=== PATIENT | female | born 1995 | race Two or more races ===

== ENCOUNTER 2023-11-20 14:05 | Emergency (ER) | payer BC, OTHER ==
[~2023-11-20] VITALS: Ht 167.6 cm; Wt 98.3 kg
[2023-11-20 14:50] LABS: Basophils # (auto) 0 10 ^3/uL (0-0.2); Basophils % (auto) 0.3 % (0.0-2.0); Eosinophils # (auto) 0 10 ^3/uL (0-0.8); Eosinophils % (auto) 0.3 % (0.0-7.0); Hematocrit 40.2 % (36.0-46.0); Lymphocytes # (auto) 1.7 10 ^3/uL (0.4-5.4); Lymphocytes % (auto) 14.7 % (10.0-50.0); Mean Corpuscular Hemoglobin 30.8 pg (28.0-32.0); Mean Corpuscular Hgb Conc. 34.8 g/dL (32.0-36.0); Mean Corpuscular Volume 88.4 fL (80.0-100.0); Monocytes # (auto) 0.5 10 ^3/uL (0-1.3); Monocytes % (auto) 4.7 % (0.0-12.0); Neutrophils # (auto) 9.3 10 ^3/uL (1.6-8.6); Nucleated Red Blood Cells % 0.1 %; Platelet Count (auto) 291 10^3/uL (140-450); Red Blood Cells 4.54 10^6/uL (4.0-5.20); Red Cell Distribution Width 13.3 % (11.8-14.3); White Blood Cell 11.7 10^3/uL (4.4-10.8)
[2023-11-20 15:11] LABS: Alanine Aminotransferase 21 U/L (7-40); Albumin 4.4 g/dL (3.2-4.8); Alkaline Phosphatase 74 U/L (46-116); Anion Gap 12 (5-15); Aspartate Aminotransferase < 8 U/L (13-40); BUN/Creatinine Ratio 17.1 (10.0-20.0); Bilirubin, Total 0.3 mg/dL (0.2-1.0); Blood Urea Nitrogen 12 mg/dL (9-23); Calcium 10.1 mg/dL (8.7-10.4); Carbon Dioxide 20 mmol/L (20-30); Chloride 108 mmol/L (98-107); Glucose 110 mg/dL (74-106); Potassium 3.9 mmol/L (3.5-5.1); Sodium 140 mmol/L (136-145)
[2023-11-20 15:47] LABS: Urine Bacteria FEW /hpf (None Seen); Urine Blood 3+ /uL (Negative); Urine Clarity Ex.Turbid (Clear); Urine Color Light-Orange (Yellow); Urine Mucus FEW (None Seen); Urine Protein, UAD 1+ (Negative); Urine Specific Gravity 1.038 (1.001-1.035); Urine Urobilinogen 3 mg/dL (Negative); Urine WBC 48 /hpf (0 - 5); Urine pH 5.5 (5.0-9.0)
[2023-11-20 15:48] LABS: Amphetamine Screen, Urine Neg (NEGATIVE); Benzodiazephine Screen, Urine Neg (NEGATIVE)
[2023-11-20 15:49] LABS: Barbiturate Scree,Urine Neg (NEGATIVE); Cocaine Screen, Urine Neg (NEGATIVE); Opiate Scree,Urine Neg (NEGATIVE); Phencyclidine Screen, Urine Neg (NEGATIVE)
[2023-11-20 15:50] LABS: Cannabinoid Screen, Urine Neg (NEGATIVE)
[2023-11-20 18:14] VITALS: BP 116/75; PULSE 83; RESP 15; TEMP 98.5; O2SAT 97
== END 2023-11-20 18:22 | disposition home or self-care (01) ==
LOC: ER 14:05
DX: O20.0 Threatened abortion (principal); N93.9 Abnormal uterine and vaginal bleeding, unspecified; Z3A.14 14 weeks gestation of pregnancy; Z88.6 Allergy status to analgesic agent
CPT/HCPCS: 36415; 76805; 76817; 80053; 80307; 81001; 84702; 85025; 86850; 86900; 86901

== ENCOUNTER 2024-04-10 08:47 | Observation (INO) | payer BC ==
--- NOTE | 2024-04-10 10:03 | DVH ---
CLINICAL HISTORY: -induced hypertension. COMPARISON: None TECHNIQUE: biophysical profile was performed. Transabdominal sonographic images of the fetus we re obtained. FINDINGS: The fetus is in cephalic position. heart rate measures 138 BPM. Amniotic fluid index measures 17.2 cm. The placenta is posterior in position. BPP profile is an overall score of 8/8, with 2/2 points for breathing, with at least one episode of breathing over a 30 second duration during a 30 minute observation, 2/2 points for m ovements, with 3 or more discrete body or limb movements, 2/2 points for tone, with one or more episodes of extremity extension with return to flexion, or opening and closing of hand, and 2/ 2 points for amniotic fluid, with at least 1 pocket of amniotic fluid that measures 2 cm in 2 perpend icular planes. IMPRESSION: BPP score of 8/8.
[2024-04-10 10:11] LABS: Urine Bacteria FEW /hpf (None Seen); Urine Blood Negative /uL (Negative); Urine Clarity Clear (Clear); Urine Color Light-Yellow (Yellow); Urine Protein, UAD Negative (Negative); Urine Specific Gravity 1.009 (1.001-1.035); Urine Squamous Epithelial Cell FEW /hpf (<5); Urine Urobilinogen Normal (Negative); Urine WBC 22 /HPF (0-5); Urine pH 6.5 (5.0-9.0)
[2024-04-10 10:34] LABS: Basophils # (auto) 0 10 ^3/uL (0-0.2); Basophils % (auto) 0.2 % (0.0-2.0); Eosinophils # (auto) 0.1 10 ^3/uL (0-0.8); Eosinophils % (auto) 0.7 % (0.0-7.0); Hemoglobin 12.5 g/dL (12.2-16.2); Lymphocytes # (auto) 1.6 10 ^3/uL (0.4-5.4); Lymphocytes % (auto) 19.5 % (10.0-50.0); Mean Corpuscular Hemoglobin 29.9 pg (28.0-32.0); Mean Corpuscular Hgb Conc. 33.8 g/dL (32.0-36.0); Mean Corpuscular Volume 88.5 fL (80.0-100.0); Monocytes # (auto) 0.5 10 ^3/uL (0-1.3); Monocytes % (auto) 6.4 % (0.0-12.0); Neutrophils # (auto) 6.2 10 ^3/uL (1.6-8.6); Neutrophils % (auto) 73.2 % (37.0-80.0); Nucleated Red Blood Cells % 0.5 %; Platelet Count (auto) 195 10^3/uL (140-450); Red Blood Cells 4.18 10^6/uL (4.0-5.20); Red Cell Distribution Width 13.7 % (11.8-14.3); White Blood Cell 8.4 10^3/uL (4.4-10.8)
[2024-04-10 10:50] LABS: INR 0.89 (0.9-1.15); Partial Thromboplastin Time 28.4 SEC (24.5-34.5); Prothrombin Time 9.5 sec (9.3-11.8)
[2024-04-10 10:55] LABS: Protein, Urine 8.2 mg/dL (1-14)
[2024-04-10 10:57] LABS: Alkaline Phosphatase 104 U/L (46-116)
[2024-04-10 10:57] LABS: Creatinine, Urine 59.9 mg/dL (30.0-125.0); Urine Protein/Creatinine Ratio 0.14
[2024-04-10 10:58] LABS: Alanine Aminotransferase 14 U/L (7-40); Albumin 3.7 g/dL (3.2-4.8); Anion Gap 6 (5-15); BUN/Creatinine Ratio 15.5 (10.0-20.0); Bilirubin, Total 0.3 mg/dL (0.2-1.0); Calcium 9.4 mg/dL (8.7-10.4); Carbon Dioxide 24 mmol/L (20-31); Chloride 107 mmol/L (98-107); Glucose 79 mg/dL (74-106); Potassium 3.8 mmol/L (3.5-5.1); Sodium 137 mmol/L (136-145); Total Protein 6.3 g/dL (5.7-8.2); Uric Acid 5.9 mg/dL (3.1-7.8)
[2024-04-10] MEDS ORDERED: PREN-96 PO (11:01)
[2024-04-10 11:02] LABS: Aspartate Aminotransferase 9 U/L (13-40); Blood Urea Nitrogen 9 mg/dL (9-23)
--- NOTE | 2024-04-10 21:16 | DVHDS2 ---
Discharge Summary Date of Admission Apr 10, 2024 at 08:47 Date of Discharge: Apr 10, 2024 Admitting Diagnosis Gestational HTN Labs/Diagnostic Data: Laboratory Results Test 04/10/24 10:02 04/10/24 09:30 White Blood Count 8.4 10^3/uL (4.4-10.8) Red Blood Count 4.18 10^6/uL (4.0-5.20) Hemoglobin 12.5 g/dL (12.2-16.2) Hematocrit 37.0 % (36.0-46.0) Mean Corpuscular Volume 88.5 fL (80.0-100.0) Mean Corpuscular Hemoglobin 29.9 pg (28.0-32.0) Mean Corpuscular Hemoglobin Concent 33.8 g/dL (32.0-36.0) Red Cell Distribution Width 13.7 % (11.8-14.3) Platelet Count 195 10^3/uL (140-450) Mean Platelet Volume 9.7 fL (6.9-10.8) Neutrophils (%) (Auto) 73.2 % (37.0-80.0) Lymphocytes (%) (Auto) 19.5 % (10.0-50.0) Monocytes (%) (Auto) 6.4 % (0.0-12.0) Eosinophils (%) (Auto) 0.7 % (0.0-7.0) Basophils (%) (Auto) 0.2 % (0.0-2.0) Neutrophils # (Auto) 6.2 10 ^3/uL (1.6-8.6) Lymphocytes # (Auto) 1.6 10 ^3/uL (0.4-5.4) Monocytes # (Auto) 0.5 10 ^3/uL (0-1.3) Eosinophils # (Auto) 0.1 10 ^3/uL (0-0.8) Basophils # (Auto) 0 10 ^3/uL (0-0.2) Nucleated Red Blood Cells 0.5 % Prothrombin Time 9.5 sec (9.3-11.8) Prothrombin Time INR 0.89 (0.9-1.15) Activated Partial Thromboplast Time 28.4 SEC (24.5-34.5) Sodium Level 137 mmol/L (136-145) Potassium Level 3.8 mmol/L (3.5-5.1) Chloride Level 107 mmol/L (98-107) Carbon Dioxide Level 24 mmol/L (20-31) Anion Gap 6 (5-15) Blood Urea Nitrogen 9 mg/dL (9-23) Creatinine 0.58 mg/dL (0.550-1.02) Glomerular Filtration Rate Calc 125 mL/min (>90) BUN/Creatinine Ratio 15.5 (10.0-20.0) Serum Glucose 79 mg/dL (74-106) Uric Acid 5.9 mg/dL (3.1-7.8) Calcium Level 9.4 mg/dL (8.7-10.4) Total Bilirubin 0.3 mg/dL (0.2-1.0) Aspartate Amino Transferase (AST) 9 U/L (13-40) Alanine Aminotransferase (ALT) 14 U/L (7-40) Alkaline Phosphatase 104 U/L (46-116) Total Protein 6.3 g/dL (5.7-8.2) Albumin 3.7 g/dL (3.2-4.8) Urine Color Light-yellow (Yellow) Urine Clarity Clear (Clear) Urine pH 6.5 (5.0-9.0) Urine Specific [place] 1.009 (1.001-1.035) Urine Protein Negative (Negative) Urine Ketones Negative (Negative) Urine Blood Negative /uL (Negative) Urine Nitrite Negative (Negative) Urine Bilirubin Negative (Negative) Urine Urobilinogen Normal mg/dL (Negative) Urine Leukocyte Esterase 3+ /uL (Negative) Urine RBC 2 /hpf (0 - 4) Urine Microscopic WBC 22 /HPF (0-5) Urine Squamous Epithelial Cells Few /hpf (<5) Urine Bacteria Few /hpf (None Seen) Urine Creatinine 59.90 mg/dL (30.0-125.0) Urine Protein/Creatinine Ratio 0.14 Urine Glucose Normal mg/dL (Normal) Urine Total Protein 8.2 mg/dL (1-14) Other Laboratory Tests 04/10/24 10:02 Brief Hx & Hospital Course: L&D triage for gestational HTN Operations or Procedures NST/BPP/COLBY PIH labs All normal Condition at Discharge: Stable Final Diagnosis/Problems List IUP 34 weeks Gestational HTN Discharge Disposition: Home Discharge Instruct/Medications Diet: Consistent carbohydrate Activity: No Restrictions, As Tolerated Follow Up/Referral: Dr. Gabriel in clinic in 1 week Medications: N/A Discharge Statement: "Patient was advised to return to the ER or call 911 if any headaches, dizziness, shortness of breath, chest pain, abdominal pain, bleeding, fevers, or worsening of medical condition. Patient was counseled about treatment plan, medications, possible side effects, patientverbalized understanding. All questions were answered to the best of my ability. This discharge took greater then 30 minutes in planning, reviewing documentation, counseling the patient, and discussing with other team members." ASSESSMENT ASSESSMENT Assessment Visit Coding OBGYN Date of Service: Apr 10, 2024 Billing Provider: INGA GABRIEL DO CABINETMAKER HELPER Common Visit Codes: [id number] OBS CARE (LOW) CABINETMAKER HELPER Procedure Codes: [id number] NON-STRESS TEST INGA GABRIEL DO Apr 10, 2024 21:15
== END 2024-04-10 11:15 | disposition home or self-care (01) ==
LOC: UNDOADMOB 08:47 → LDRP 08:47 → UNDODISOB 11:15
PROVIDERS: ADMIT Obstetrics & Gynecology; ATTEND Obstetrics & Gynecology
DX: O13.3 Gestational [pregnancy-induced] hypertension without significant proteinuria, third trimester (principal); Z98.890 Other specified postprocedural states; Z79.899 Other long term (current) drug therapy; Z3A.34 34 weeks gestation of pregnancy
CPT/HCPCS: 36415; 59025; 76818; 80053; 81001; 81002; 82570; 84156; 84550; 85025; 85610; 85730; 87086; 94760; G0378

== ENCOUNTER 2024-05-08 09:48 | Inpatient (IN) | payer BC ==
[2024-05-08] VITALS (10 sets, daily range): BP systolic 116–134; BP diastolic 63–83; PULSE 74–89; RESP 12–18; TEMP 97.9–98.4; O2SAT 93–100
[~2024-05-08] VITALS: Ht 167.6 cm; Wt 107.0 kg
[~2024-05-08 09:48] MED LIST: PREN-96 PO
--- NOTE | 2024-05-08 11:04 | DVH ---
CLINICAL HISTORY: -induced hypertension. COMPARISON: US BIOPHYSICAL PROFILE on DOS: 04/10/24 TECHNIQUE: biophysical profile was performed. Transabdominal sonographic images of the fetus we re obtained. FINDINGS: The fetus is in cephalic position. heart rate measures 148 BPM. Amniotic fluid index measures 15.5 cm. The placenta is posterior in position, without evidence of previa or abruption. BPP profile is an overall score of 8/8, with 2/2 points for breathing, with at least one episode of breathing over a 30 second duration during a 30 minute observation, 2/2 points for m ovements, with 3 or more discrete body or limb movements, 2/2 points for tone, with one or more episodes of extremity extension with return to flexion, or opening and closing of hand, and 2/ 2 points for amniotic fluid, with at least 1 pocket of amniotic fluid that measures 2 cm in 2 perpend icular planes. IMPRESSION: BPP score of 8/8.
[2024-05-08] MEDS ORDERED: hydrALAZINE HCL 20 MG/ML VL IV PRN (11:15)
[2024-05-08] MEDS: LABETALOL HCL 20 MG/4 ML VL IV ONE ×3 (11:16→21:09)
[2024-05-08] MEDS ORDERED: DERMOPLAST 60ML BOTTLE TOP PRN (11:30)
[2024-05-08] MEDS ORDERED: WITCH HAZEL-GLYCERIN PAD TOP PRN (11:30)
[2024-05-08] MEDS ORDERED: LACT. RINGERS/OXYTOCIN 20UNITS 1,000 ML IV SCH (11:30)
[2024-05-08] MEDS ORDERED: miSOPROStol 50 MCG per PRE-CUT 1/2 TAB PO PRN (11:30)
[2024-05-08] MEDS ORDERED: LIDOCAINE 2%HCL (LOCAL ANESTH.) INJ 20ML MDV IJ PRN (11:30)
[2024-05-08] MEDS ORDERED: LACT. RINGERS/OXYTOCIN 20UNITS 500 ML IV ONE ×2 (11:30→12:00)
[2024-05-08] MEDS ORDERED: BUTORPHANOL TARTRATE 2 MG/1 ML VIAL IV PRN ×2 (11:30)
[2024-05-08] MEDS ORDERED: TERBUTALINE SULFATE 1 MG/ML 1ML VIAL SC PRN (11:30)
[2024-05-08] MEDS ORDERED: PHISODERM TOP SOLN 240ML BTL TOP PRN (11:30)
[2024-05-08 12:21] LABS: Protein, Urine 23.4 mg/dL (1-14)
[2024-05-08 12:21] LABS: Basophils # (auto) 0 10 ^3/uL (0-0.2); Basophils % (auto) 0.3 % (0.0-2.0); Eosinophils # (auto) 0 10 ^3/uL (0-0.8); Eosinophils % (auto) 0.3 % (0.0-7.0); Hemoglobin 13.3 g/dL (12.2-16.2); Lymphocytes # (auto) 1.4 10 ^3/uL (0.4-5.4); Lymphocytes % (auto) 14.6 % (10.0-50.0); Mean Corpuscular Hemoglobin 30.6 pg (28.0-32.0); Mean Corpuscular Hgb Conc. 34.2 g/dL (32.0-36.0); Mean Corpuscular Volume 89.6 fL (80.0-100.0); Monocytes # (auto) 0.5 10 ^3/uL (0-1.3); Monocytes % (auto) 4.7 % (0.0-12.0); Neutrophils # (auto) 7.9 10 ^3/uL (1.6-8.6); Neutrophils % (auto) 80.1 % (37.0-80.0); Nucleated Red Blood Cells % 0.1 %; Platelet Count (auto) 181 10^3/uL (140-450); Red Blood Cells 4.35 10^6/uL (4.0-5.20); Red Cell Distribution Width 14.2 % (11.8-14.3); White Blood Cell 9.9 10^3/uL (4.4-10.8)
[2024-05-08 12:23] LABS: Creatinine, Urine 130.79 mg/dL (30.0-125.0); Urine Protein/Creatinine Ratio 0.18
[2024-05-08] MEDS: LACTATED RINGER'S 1,000 ML IV SCH (12:24)
[2024-05-08 12:25] LABS: Amphetamine Screen, Urine Neg (NEGATIVE); Barbiturate Scree,Urine Neg (NEGATIVE); Benzodiazephine Screen, Urine Neg (NEGATIVE); Cannabinoid Screen, Urine Neg (NEGATIVE); Cocaine Screen, Urine Neg (NEGATIVE); Opiate Scree,Urine Neg (NEGATIVE); Phencyclidine Screen, Urine Neg (NEGATIVE)
[2024-05-08] MEDS: MAGNESIUM SULFATE 100 ML IV ONE (12:25)
[2024-05-08 12:39] LABS: Urine Bacteria FEW /hpf (None Seen); Urine Blood Negative /uL (Negative); Urine Clarity Clear (Clear); Urine Color Yellow (Yellow); Urine Hyaline Cast FEW /lpf (0 - 2); Urine Mucus FEW (None Seen); Urine Protein, UAD TRACE (Negative); Urine Specific Gravity 1.025 (1.001-1.035); Urine Squamous Epithelial Cell FEW /hpf (<5); Urine Urobilinogen Normal (Negative); Urine WBC 6 /HPF (0-5)
[2024-05-08 12:46] LABS: Alanine Aminotransferase 17 U/L (7-40); Anion Gap 9 (5-15); Aspartate Aminotransferase 14 U/L (13-40); BUN/Creatinine Ratio 14.3 (10.0-20.0); Bilirubin, Total 0.4 mg/dL (0.2-1.0); Blood Urea Nitrogen 10 mg/dL (9-23); Calcium 9.4 mg/dL (8.7-10.4); Carbon Dioxide 23 mmol/L (20-31); Chloride 105 mmol/L (98-107); Glucose 77 mg/dL (74-106); INR 0.86 (0.9-1.15); Magnesium 1.8 mg/dL (1.6-2.6); Partial Thromboplastin Time 28.2 SEC (24.5-34.5); Potassium 4.1 mmol/L (3.5-5.1); Prothrombin Time 9.3 sec (9.3-11.8); Sodium 137 mmol/L (136-145); Total Protein 6.8 g/dL (5.7-8.2)
[2024-05-08 12:48] LABS: Alkaline Phosphatase 138 U/L (46-116)
[2024-05-08] MEDS: MAGNESIUM SULFATE 40MG/ML 1,000 ML IV SCH (12:50)
[2024-05-08] MEDS ORDERED: NALOXONE HCL 0.4 MG/ML VIAL IV ONE (13:15)
[2024-05-08] MEDS ORDERED: ROPIVACAINE HCL 200 ML ONE (13:29)
--- NOTE | 2024-05-08 13:33 | DVHPN2 ---
Visit Coding OBGYN Date of Service: May 08, 2024 Billing Provider: INGA GABRIEL DO CLINICAL INFORMATICS SPECIALIST Common Visit Codes: [id number] OBS CARE (HIGH) INGA GABRIEL DO May 08, 2024 13:33
--- NOTE | 2024-05-08 13:36 | DVHPN2 ---
OB Labor Progress Note Date and Time Seen Date Seen: May 08, 2024 Time Seen: 13:25 Subjective Patient reports: No new complaints Objective Vital Signs VS stable Monitoring Method Monitoring Method: Internal Heart Rate Heart Rate Baseline: 130 Heart Rate Variability: Minimal Presence of FHR Accelerations: No Presence of FHR Decelerations: No Contractions Contractions Frequency: None Membranes Membranes: Ruptured (AROM, light meconium fluid. IUPC/FSE placed) Amniotic Fluid Color: THERMOSTAT MAKER Meconium Vaginal Exam Vag Exam Deferred: No Vaginal Exam Dilation: 4 Vaginal Exam Effacement: 80 Vaginal Exam Station: -2 Vaginal Exam Presentation: VTX Vaginal Exam Show: None Medications Medications - Pitocin: No Medication - Epidural: No Lab Results Lab Results Vital Signs Date Time Temp Pulse Resp B/P (MAP) Pulse Ox O2 Delivery O2 Flow Rate FiO2 05/08/24 15:30 18 100 Room Air 05/08/24 11:16 83 130/75 Current Medications Medications (Trade) Dose Ordered Sig/Sandrine Start Time Stop Time Status Last Admin Dose Admin Hydralazine HCl (Apresoline Injection) 10 mg Q20MP PRN 05/08/24 11:15 Labetalol HCl (Labetalol HCl) 20 mg ONCE ONCE 05/08/24 11:15 05/08/24 11:43 DC Lactated Ringer's 1,000 ml @ 125 mls/hr Q8H 05/08/24 11:30 05/08/24 12:24 125 MLS/HR Witch Marilu (Tucks) 1 pad PRN PRN 05/08/24 11:30 Sodium Lauryl Sulfate (Phisoderm) 240 ml PRN PRN 05/08/24 11:30 Benzocaine (Dermoplast) 1 applic PRN PRN 05/08/24 11:30 Butorphanol Tartrate (Stadol Injection) 1 mg Q4HPRN PRN 05/08/24 11:30 Butorphanol Tartrate (Stadol Injection) 2 mg Q4HPRN PRN 05/08/24 11:30 Lidocaine HCl (Xylocaine) 20 ml ONCE PRN 05/08/24 11:30 Oxytocin 1,000 ml @ 6 ml/hr Q24H 05/08/24 11:30 Terbutaline Sulfate (Brethine Inj) 0.25 mg ONCE PRN 05/08/24 11:30 Oxytocin 500 ml @ 999 mls/hr Q31M ONCE 05/08/24 11:30 05/08/24 12:00 DC Oxytocin 500 ml @ 125 mls/hr Q4H ONCE 05/08/24 12:00 05/08/24 15:59 DC Misoprostol (Cytotec) 50 mcg Q4HPRN PRN 05/08/24 11:30 Magnesium Sulfate 1,000 ml @ 50 mls/hr Q20H 05/08/24 11:30 05/08/24 12:50 50 MLS/HR Magnesium Sulfate 100 ml @ 300 mls/hr ONCE ONCE 05/08/24 11:30 05/08/24 11:49 DC 05/08/24 12:25 300 MLS/HR Lorazepam (Ativan Inj) 4 mg ONCE ONCE 05/08/24 11:30 05/08/24 11:43 DC Labetalol HCl (Labetalol HCl) 40 mg ONCE ONCE 05/08/24 12:30 05/08/24 13:06 DC Naloxone HCl (Narcan) 0.2 mg PRN ONCE 05/08/24 13:15 05/08/24 13:28 DC Ephedrine Sulfate (ePHEDrine SULFATE) 10 mg PRN ONCE 05/08/24 13:15 05/08/24 13:28 DC 05/08/24 13:52 10 MG Laboratory Tests Test 05/08/24 11:39 05/08/24 10:40 Range/Units White Blood Count 9.9 4.4-10.8 10^3/uL Red Blood Count 4.35 4.0-5.20 10^6/uL Hemoglobin 13.3 12.2-16.2 g/dL Hematocrit 39.0 36.0-46.0 % Mean Corpuscular Volume 89.6 80.0-100.0 fL Mean Corpuscular Hemoglobin 30.6 28.0-32.0 pg Mean Corpuscular Hemoglobin Concent 34.2 32.0-36.0 g/dL Red Cell Distribution Width 14.2 11.8-14.3 % Platelet Count 181 140-450 10^3/uL Mean Platelet Volume 10.6 6.9-10.8 fL Neutrophils (%) (Auto) 80.1 H 37.0-80.0 % Lymphocytes (%) (Auto) 14.6 10.0-50.0 % Monocytes (%) (Auto) 4.7 0.0-12.0 % Eosinophils (%) (Auto) 0.3 0.0-7.0 % Basophils (%) (Auto) 0.3 0.0-2.0 % Neutrophils # (Auto) 7.9 1.6-8.6 10 ^3/uL Lymphocytes # (Auto) 1.4 0.4-5.4 10 ^3/uL Monocytes # (Auto) 0.5 0-1.3 10 ^3/uL Eosinophils # (Auto) 0 0-0.8 10 ^3/uL Basophils # (Auto) 0 0-0.2 10 ^3/uL Nucleated Red Blood Cells 0.1 % Prothrombin Time 9.3 9.3-11.8 sec Prothrombin Time INR 0.86 L 0.9-1.15 Activated Partial Thromboplast Time 28.2 24.5-34.5 SEC Sodium Level 137 136-145 mmol/L Potassium Level 4.1 3.5-5.1 mmol/L Chloride Level 105 98-107 mmol/L Carbon Dioxide Level 23 20-31 mmol/L Anion Gap 9 5-15 Blood Urea Nitrogen 10 9-23 mg/dL Creatinine 0.70 0.550-1.02 mg/dL Glomerular Filtration Rate Calc 119 >90 mL/min BUN/Creatinine Ratio 14.3 10.0-20.0 Serum Glucose 77 74-106 mg/dL Uric Acid 6.0 3.1-7.8 mg/dL Calcium Level 9.4 8.7-10.4 mg/dL Magnesium Level 1.8 1.6-2.6 mg/dL Total Bilirubin 0.4 0.2-1.0 mg/dL Aspartate Amino Transferase (AST) 14 13-40 U/L Alanine Aminotransferase (ALT) 17 7-40 U/L Alkaline Phosphatase 138 H 46-116 U/L Total Protein 6.8 5.7-8.2 g/dL Albumin 4.0 3.2-4.8 g/dL Rapid Plasma Reagin Pending Treponema pallidum Ab (TP-PA) Pending Hepatitis C Antibody Negative Negative Urine Color Yellow Yellow Urine Clarity Clear Clear Urine pH 6.0 5.0-9.0 Urine Specific [place] 1.025 1.001-1.035 Urine Protein Trace H Negative Urine Ketones Negative Negative Urine Blood Negative Negative /uL Urine Nitrite Negative Negative Urine Bilirubin Negative Negative Urine Urobilinogen Normal Negative mg/dL Urine Leukocyte Esterase 2+ Negative /uL Urine RBC 2 0 - 4 /hpf Urine Microscopic WBC 6 H 0-5 /HPF Urine Squamous Epithelial Cells Few <5 /hpf Urine Bacteria Few H None Seen /hpf Urine Hyaline Casts Few 0 - 2 /lpf Urine Mucus Few None Seen Urine Creatinine 130.79 H 30.0-125.0 mg/dL Urine Protein/Creatinine Ratio 0.18 Urine Glucose Normal Normal mg/dL Urine Total Protein 23.4 H 1-14 mg/dL Urine Opiates Screen Neg NEGATIVE Urine Fentanyl Screen Neg NEGATIVE Urine Barbiturates Screen Neg NEGATIVE Urine Phencyclidine Screen Neg NEGATIVE Urine Amphetamines Screen Neg NEGATIVE Urine Benzodiazepines Screen Neg NEGATIVE Urine Cocaine Screen Neg NEGATIVE Urine Cannabinoids Screen Neg NEGATIVE Assessment Assessment Severe Gestational HTN vs Pre-eclampsia, IUP 38.4 wk GBS neg Category II FHR (minimal variability, no decels) Plan Plan Induction of labor by Amniotomy Pitocin if necessary Continuous EFM Indications for C/S discussed w/ patient. Plan discussed with: Patient, Other (RN) Visit Coding OBGYN Date of Service: May 08, 2024 Billing Provider: INGA GABRIEL DO SOCIAL WORKER CLINICAL Common Visit Codes: [id number] INP/OBS CARE(HIGH) INGA GABRIEL DO May 08, 2024 13:36
--- NOTE | 2024-05-08 13:39 | DVHHP ---
ADMIT DATE: 05/08/2024 CHIEF COMPLAINT: Elevated blood pressure. HISTORY OF PRESENT ILLNESS: * This is a 28-year-old female 1, para 0 with an early term intrauterine , EGA at 38 weeks and 4 days. * The patient has endorsed almost daily headaches that are mild to moderate, yet persistent. She denies any visual changes, epigastric pain or any nondependent edema. Previously about 2 weeks ago, she was elevated for elevated blood pressures that proved to be transient. Today, her blood pressure is elevated in the office, 130/90, and 170/100 on L&D. PAST MEDICAL HISTORY: Negative. PAST SURGICAL HISTORY: Negative. MEDICATIONS: vitamins. ALLERGIES: No known drug allergies. FAMILY HISTORY: NON CONTRIBUTORY SOCIAL HISTORY: Denies any tobacco, illicit drug use or alcohol use. The patient is . REVIEW OF SYSTEMS: A 14-point review of systems is negative, otherwise stated in the history of present illness. PHYSICAL EXAMINATION: VITAL SIGNS: Please refer to EHR. GENERAL: She is alert, in no acute distress, appears nontoxic. HEENT: Normocephalic, atraumatic. EOMI. NECK: Supple, with no palpable thyromegaly. CHEST: Normal heart and lung sounds without any gallops or murmurs. ABDOMEN: Gravid, soft, nontender. Fundal height 38 cm. EXTREMITIES: With trace peripheral pretibial edema. DTRs are 1/4. No hyperreflexia or clonus noted. PELVIC: Shows normal external female genitalia with no lesions. Cervix is 3-4 cm dilated, 80% effaced and -2 station with a vertex presentation. heart rate is baseline of 130 with minimal variability, no decelerations, no accelerations (category 2). TOCO: There are no contractions present. She is GBS negative. ASSESSMENT: * Early term intrauterine 38 weeks and 4 days. * Severe hypertension, gestational hypertension versus severe preeclampsia * Category II FHR pattern PLAN: The patient will be admitted for medically indicated induction of labor. The risks, benefits and alternatives have been discussed with the patient and informed consent has been obtained. Risks and necessity of proceeding to for maternal indications have been discussed with the patient. Patient desires attempt to vaginal delivery, declined offer of primary c/section delivery without a trial of labor. DO GERARD David/VIS TID: [id number] RECEIPT: [id number] MTDD
[2024-05-08] MEDS: ePHEDrine SULFATE 50 MG/ML AMP IV ONE (13:52)
[2024-05-08] MEDS ORDERED: oxyTOCIN 10 UNIT/ML 10ML VIAL ONE (16:50)
[2024-05-08] MEDS ORDERED: DexAMETHasone SOD PHOS 10MG/1ML VIAL INJ ONE (16:50)
[2024-05-08] MEDS ORDERED: KETOROLAC TROMETH 30 MG/ML 1ML VIAL ONE (16:50)
[2024-05-08] MEDS ORDERED: ONDANSETRON HCL 4 MG/2 ML VIAL ONE (16:50)
[2024-05-08] MEDS ORDERED: MORPHINE SULF PF 5 MG/10 ML VIAL ONE (16:50)
[2024-05-08] MEDS ORDERED: fentaNYL CITRATE 100 MCG/2 ML VL ONE (16:50)
[2024-05-08] MEDS ORDERED: EPINEPHrine HCL 1 MG/1 ML AMP ONE (16:53)
[2024-05-08] MEDS ORDERED: LIDOCAINE 1% (LOCAL ANESTH.) PF 5ml SDV ONE (16:53)
[2024-05-08] MEDS ORDERED: SODIUM BICARB 8.4% 50Meq/50ml SYR Vial IV ONE (16:53)
[2024-05-08] MEDS ORDERED: LIDOCAINE 2% (LOCAL ANESTH.) PF 5ml SDV ONE (16:54)
[2024-05-08] MEDS ORDERED: ePHEDrine SULFATE 50 MG/ML AMP ONE (17:48)
[2024-05-08] MEDS ORDERED: NALBUPHINE HCL 10 MG/1ml INJECTION IV ONE (18:30)
[2024-05-08] MEDS ORDERED: diphenhdrAMINE HCL 50 MG/1 ML VL IV PRN (18:30)
[2024-05-08] MEDS ORDERED: NALOXONE HCL 0.4 MG/ML VIAL IV PRN (18:30)
[2024-05-08] MEDS ORDERED: HYDROmorphone HCL 2 MG/ML VL/or syr IV PRN (18:30)
--- NOTE | 2024-05-08 18:35 | DVHOP2 ---
Operative Report - 2 Report Details Date: 05/08/24 Preop Diagnosis: 1. IUP 38.4 wk, Severe Gestational Hypertension 2. Failed induction of labor, NRFHR pattern 3. Category II EFM Postop Diagnosis: Same Surgeon: Rene Gabriel DO Supervisor Meter [employer]: Ruddy Larkin NP-C Anesthesiologist: Amari Hawthorne CRNA Anesthesia: Regional (Epidural) Consent: The patient was informed of the risks and benefits of the procedure. These include but are not limited to complications of anesthesia, postoperative infection, incomplete relief of symptoms, recurrence of symptoms, damage to blood vessels, nerves and tendons, deep venous thrombosis, pulmonary embolism and possible need for repeat surgery in the future. Complications: None Estimated Blood Loss: 700 mL Findings: Findings: Viable male infant in cephalic presentation. Apgars 8 and 9. Light meconium tinged amniotic fluid. Intact placenta, three vessel cord. Normal uterus, fallopian tubes and ovaries bilaterally. 2 layer uterine closure Indications for Surgery: intolerance to labor, NRFHR categ II EFM tracing, remote from delivery Name of Procedure Performed Primary Low Transverse Section Delivery Procedure Details Procedure Details: DATE OF SURGERY: 05/08/2024 PROCEDURE PERFORMED: Non-elective primary low transverse section via Pfannenstiel skin incision. SURGEON: Rene Gabriel DO BRICK BURNER: Ruddy Larkin NP DESCRIPTION OF FINDINGS: Delivery of a liveborn male, cephalic presentation, scores of 8 and 9, 1+ meconium stained amniotic fluid. Normal placenta, 3-vessel umbilical cord, two-layer uterine closure. Normal bilateral fallopian tubes, ovaries and placenta as described above. TECHNICAL PROCEDURE: After informed consent was obtained, the patient was taken to the operating room where her epidural anesthesia was found to be adequate. She was placed in the supine position with a slight leftward tilt. She was sterilely prepped and draped in the usual fashion. A Pfannenstiel skin incision was made with the scalpel. The incision was developed sharply to the underlying layer of fascia and peritoneum. Entry into the peritoneal cavity was performed bluntly. The peritoneal incision was extended superiorly and inferiorly with good visualization of the bladder. The Memo O retractor was placed into the incision. Using a second scalpel, the lower uterine segment was incised in a low transverse fashion and incision extended laterally by blunt dissection. The amniotic fluid membranes were ruptured. The fluid was 1+ meconium stained. The baby was found to be the cephalic presentation. The baby was delivered atraumatically. After delivery of the infant, the nose and mouth were suctioned. The cord was clamped and cut and the baby handed off to waiting pediatric team. Cord blood and cord gas were obtained. The placenta was spontaneously delivered. The uterus was exteriorized and cleared of all clots and debris using moist laparotomy sponges. The uterine incision was repaired with #1 PDS in continuous running locking fashion. A second layer of #1 PDS was used to imbricate the uterine incision with good tissue approximation and hemostasis obtained. The cul-de-sac and pericolic gutters were cleared of all clots and debris. The uterus was returned to the abdomen. Hemostasis was confirmed. The abdomen was irrigated with sterile water. At this point, all instrumentation was removed from the patient's abdomen. The peritoneal layer was not closed. The rectus fascia was closed using #1 Stratafix PDS. It was closed in continuous running fashion with good tissue approximation. The subcutaneous tissue was approximated in interrupted fashion using 3-0 plain gut and the skin closed in subcuticular fashion using 3-0 Monocryl with a Stratafix suture. The Sylke sterile dressing was then placed over the incision. The patient tolerated the procedure well. Sponge, lap and needle counts were correct x4. INTRAOPERATIVE COMPLICATIONS: None. ESTIMATED BLOOD LOSS: 700 mL POSTOPERATIVE CONDITION: guarded due to hypertension SPECIMENS: Cord blood, cord gas and placenta. MEDICATIONS: The patient received 2 grams of Ancef prior to skin incision and IV magnesium sulfate prior to delivery and IV labetalol for severe hypertension. PROGNOSIS: Guarded due to severe gestational hypertension Rene Gabriel DO CG/SAG Condition Guarded Disposition Still a Patient Visit Coding OBGYN Date of Service: May 08, 2024 Billing Provider: RENE GABRIEL DO BUFF WHEEL FABRICATOR Common Visit Codes: PROCEDURE ONLY BUFF WHEEL FABRICATOR Procedure Codes: [id number] OB CARE, RENE BRADSHAW DO May 08, 2024 18:35
[2024-05-08] MEDS: ONDANSETRON HCL 4 MG/2 ML VIAL IV PRN (20:43)
[2024-05-08] MEDS: LORazepam 2MG/ML-1ML VIAL IV ONE (21:08)
[2024-05-08] MEDS: ceFAZolin 2 GM/D5W50ml 50 ML IV ONE (21:09)
[2024-05-08] MEDS: LACTATED RINGER'S 1,000 ML IV ONE (21:09)
[2024-05-09] VITALS (20 sets, daily range): BP systolic 100–149; BP diastolic 60–91; PULSE 70–97; RESP 14–18; TEMP 97.8–98.5; O2SAT 91–100
--- NOTE | 2024-05-09 03:44 | DVHPN2 ---
Progress Note Date Seen: May 09, 2024 Subjective POD#1 s/p 1' C/S at Term due to severe Gestational HTN and NRFHR in labor S: Pain controlled. Lochia mild. NO symptoms of PIH vital signs Vital Sign Date Time Temp Pulse Resp B/P (MAP) Pulse Ox O2 Delivery O2 Flow Rate FiO2 05/09/24 03:00 98.1 98.1 05/09/24 02:00 90 18 92 05/09/24 00:00 Room Air 05/08/24 18:36 121/65 (83) Total Intake and Output 05/08/24 05/08/24 05/09/24 15:00 23:00 07:00 Output Total 650 ml 350 ml Balance -650 ml -350 ml medications Current Medications Medications Dose Ordered Sig/Sandrine Route Start Time Stop Time Status Last Admin Dose Admin Hydralazine HCl 10 mg Q20MP PRN IV 05/08/24 11:15 Lactated Ringer's 1,000 ml @ 125 mls/hr Q8H IV 05/08/24 11:30 05/08/24 19:25 125 MLS/HR Witch Marilu 1 pad PRN PRN TOP 05/08/24 11:30 Sodium Lauryl Sulfate 240 ml PRN PRN TOP 05/08/24 11:30 Benzocaine 1 applic PRN PRN TOP 05/08/24 11:30 Butorphanol Tartrate 1 mg Q4HPRN PRN IV 05/08/24 11:30 Cancel Butorphanol Tartrate 2 mg Q4HPRN PRN IV 05/08/24 11:30 Cancel Lidocaine HCl 20 ml ONCE PRN IJ 05/08/24 11:30 Cancel Oxytocin 1,000 ml @ 6 ml/hr Q24H IV 05/08/24 11:30 Cancel Terbutaline Sulfate 0.25 mg ONCE PRN SC 05/08/24 11:30 Cancel Misoprostol 50 mcg Q4HPRN PRN PO 05/08/24 11:30 Cancel Magnesium Sulfate 1,000 ml @ 50 mls/hr Q20H IV 05/08/24 11:30 05/08/24 19:58 50 MLS/HR Diphenhydramine HCl 25 mg Q4HP PRN IV 05/08/24 18:30 Ondansetron HCl 4 mg Q4HP PRN IV 05/08/24 18:30 05/09/24 02:55 4 MG laboratory and microbiology Laboratory Tests 05/08/24 11:39 Test 05/08/24 11:39 Range/Units Serum Glucose 77 74-106 mg/dL Objective O: AFVSS Chest: heart and lung sounds normal. Abd soft, non-tender, fundus firm, BS, no rebound or guarding, Incision - dressing and incision clean, dry, intact Ext Neg Homans, Non-tender, edema Lochia - minimal Labs Reviewed Assessment/Plan POD#1 s/p 1' C/S for severe HTN, doing well BP's stable Plan: Continue current care MagSO4 to be discontinued at 24h Regular diet Plan discussed with: Patient, Other (RN) Visit Coding OBGYN Date of Service: May 09, 2024 Billing Provider: INGA GABRIEL DO ELECTRONICS TECHNOLOGY DEPARTMENT CHAIR Common Visit Codes: [id number] INP/OBS CARE(HIGH) INGA GABRIEL DO May 09, 2024 03:44
[2024-05-09 06:36] LABS: Basophils # (auto) 0 10 ^3/uL (0-0.2); Basophils % (auto) 0.1 % (0.0-2.0); Eosinophils # (auto) 0 10 ^3/uL (0-0.8); Hematocrit 36.9 % (36.0-46.0); Hemoglobin 12.6 g/dL (12.2-16.2); Lymphocytes # (auto) 0.5 10 ^3/uL (0.4-5.4); Lymphocytes % (auto) 5.1 % (10.0-50.0); Mean Corpuscular Hemoglobin 30.4 pg (28.0-32.0); Mean Corpuscular Hgb Conc. 34.2 g/dL (32.0-36.0); Mean Corpuscular Volume 89.1 fL (80.0-100.0); Monocytes # (auto) 0.7 10 ^3/uL (0-1.3); Monocytes % (auto) 6.1 % (0.0-12.0); Neutrophils # (auto) 9.5 10 ^3/uL (1.6-8.6); Neutrophils % (auto) 88.7 % (37.0-80.0); Nucleated Red Blood Cells % 0.1 %; Platelet Count (auto) 178 10^3/uL (140-450); Red Blood Cells 4.14 10^6/uL (4.0-5.20); Red Cell Distribution Width 14.3 % (11.8-14.3); White Blood Cell 10.7 10^3/uL (4.4-10.8)
[2024-05-09 06:49] LABS: Alanine Aminotransferase 17 U/L (7-40); Albumin 3.7 g/dL (3.2-4.8); Alkaline Phosphatase 111 U/L (46-116); Anion Gap 11 (5-15); Aspartate Aminotransferase 20 U/L (13-40); BUN/Creatinine Ratio 10.6 (10.0-20.0); Blood Urea Nitrogen 10 mg/dL (9-23); Carbon Dioxide 21 mmol/L (20-31); Chloride 104 mmol/L (98-107); Potassium 4.3 mmol/L (3.5-5.1); Total Protein 6.1 g/dL (5.7-8.2)
[2024-05-09 06:50] LABS: Bilirubin, Total 0.4 mg/dL (0.2-1.0)
[2024-05-09] MEDS ORDERED: HYDROcodone-ACET 5/325MG TAB PO PRN (07:00)
[2024-05-09 07:07] LABS: Calcium 8.4 mg/dL (8.7-10.4); Glucose 123 mg/dL (74-106); Sodium 136 mmol/L (136-145)
[2024-05-09] MEDS ORDERED: MAGNESIUM SULFATE 40MG/ML 1,000 ML IV SCH (07:15)
[2024-05-09] MEDS: DOCUSATE SOD 100 MG CAP PO SCH (09:44)
[2024-05-09] MEDS: SIMETHICONE 80 MG CHEWABLE TABLET PO SCH (12:08)
[2024-05-09] MEDS: HYDROcodone-ACET 5/325MG TAB PO PRN (15:10)
[2024-05-09] MEDS: IBUPROFEN 800 MG TAB PO PRN (22:27)
--- NOTE | 2024-05-10 00:18 | DVHPN2 ---
Progress Note Date Seen: May 10, 2024 Subjective S: bleeding is less, eating food without issues, denies lightheaded/dizziness, pain well controlled with oral medications, no concerns with urinating, no flatus/BM yet, ambulating well, pumping because baby is in NICU at [facility]. Denies GLYNN/vision changes/RUQ pain. vital signs Vital Sign Date Time Temp Pulse Resp B/P (MAP) Pulse Ox O2 Delivery O2 Flow Rate FiO2 05/09/24 22:34 97.8 84 14 125/75 (92) 97 97.8 05/09/24 19:11 Room Air Total Intake and Output 05/09/24 05/09/24 05/10/24 15:00 23:00 07:00 Intake Total 300 ml Output Total 350 ml 300 ml 700 ml Balance -350 ml 0 ml -700 ml medications Current Medications Medications Dose Ordered Sig/Sandrine Route Start Time Stop Time Status Last Admin Dose Admin Hydralazine HCl 10 mg Q20MP PRN IV 05/08/24 11:15 Lactated Ringer's 1,000 ml @ 125 mls/hr Q8H IV 05/08/24 11:30 05/08/24 19:25 125 MLS/HR Witch Marilu 1 pad PRN PRN TOP 05/08/24 11:30 Sodium Lauryl Sulfate 240 ml PRN PRN TOP 05/08/24 11:30 Benzocaine 1 applic PRN PRN TOP 05/08/24 11:30 Butorphanol Tartrate 1 mg Q4HPRN PRN IV 05/08/24 11:30 Cancel Butorphanol Tartrate 2 mg Q4HPRN PRN IV 05/08/24 11:30 Cancel Lidocaine HCl 20 ml ONCE PRN IJ 05/08/24 11:30 Cancel Oxytocin 1,000 ml @ 6 ml/hr Q24H IV 05/08/24 11:30 Cancel Terbutaline Sulfate 0.25 mg ONCE PRN SC 05/08/24 11:30 Cancel Misoprostol 50 mcg Q4HPRN PRN PO 05/08/24 11:30 Cancel Diphenhydramine HCl 25 mg Q4HP PRN IV 05/08/24 18:30 Ondansetron HCl 4 mg Q4HP PRN IV 05/08/24 18:30 05/09/24 02:55 4 MG Docusate Sodium 100 mg Q12HR PO 05/09/24 10:00 05/09/24 22:26 100 MG Dimethicone 80 mg QID PO 05/09/24 12:00 05/09/24 22:26 80 MG Ibuprofen 800 mg Q8HP PRN PO 05/09/24 07:00 05/09/24 22:27 800 MG Acetaminophen/ Hydrocodone Bitart 1 tab Q4HPRN PRN PO 05/09/24 07:00 Acetaminophen/ Hydrocodone Bitart 2 tab Q4HPRN PRN PO 05/09/24 07:00 05/09/24 15:10 2 TAB laboratory and microbiology Laboratory Tests 05/09/24 06:08 Test 05/09/24 06:08 Range/Units Serum Glucose 123 H 74-106 mg/dL Objective O: VSS Chest: heart sounds normal and lung sounds clear bilaterally Abd: soft, non-tender, fundus at U/firm/midline, active bowel sounds, no rebound or guarding Incision: sylke dressing open to air, clean/dry/intact Ext: Non-tender, No edema, 2+ BLE DTRs Lochia: minimal See lab results Problems(with codes): (1) Preeclampsia (2) S/P primary low transverse Assessment/Plan A: 28yo now POD#2 s/p primary Preeclampsia Rh+ Rubella Immune Pumping breast milk, baby in NICU at [facility] P: Okay to D/C home today after passing flatus Rx sent to pharmacy precautions and preeclampsia warning signs reviewed F/U with [facility] OB office [place] [address] Lazaro consulted, agrees with POC. Plan discussed with: Patient Visit Coding OBGYN Date of Service: May 10, 2024 Billing Provider: KEZIA YEE CNM GARDENER FLORIST Common Visit Codes: [id number] INP/OBS CARE(HIGH) KEZIA YEE CNM May 10, 2024 00:18
[2024-05-10] MEDS ORDERED: DOCU-265 PO (00:20)
[2024-05-10] MEDS ORDERED: HYDR-4902 PO (00:20)
[2024-05-10] MEDS ORDERED: IBUP-1455 PO (00:20)
--- NOTE | 2024-05-10 00:24 | DVHDS2 ---
Obstetrics Discharge Summary Obstetrics Discharge Summary Date of Admission: May 08, 2024 Date of Discharge: May 10, 2024 Reason For Admission: Induction of Labor (c) Procedures: NST, Ultrasound, Mgmt of Obstetrics Compli Intrapartum Procedures: (primary LTCS) Procedures: Antibiotics, Hct/date: (05/09/24), Hgb/date: (05/09/24) Operative Complicat: None Discharge Diagnosis: Term -Delivered, Others (severe GHTN) Discharge Information: Activity (as tolerated, no heavy lifting and nothing in the vagina for 6 weeks), Diet (Routine), Medications (Rx sent), Instructions (Routine), Discharge to (Home), Accompanied by (family), Discarge date (05/10/24) Visit Coding OBGYN Date of Service: May 10, 2024 Billing Provider: KEZIA YEE CNM [employer] Common Visit Codes: 66929-[id number] DISCH DAY <30MIN KEZIA YEE CNM May 10, 2024 00:24
[2024-05-10 02:55] VITALS: BP 115/72; PULSE 83; RESP 16; TEMP 98.2; O2SAT 97
[2024-05-10 07:00] VITALS: BP 120/70; PULSE 65; RESP 16; TEMP 98.3; O2SAT 98
[2024-05-10 10:32] VITALS: BP 122/70; PULSE 80; RESP 16; TEMP 98.5; O2SAT 99
== END 2024-05-10 11:37 | disposition home or self-care (01) | DRG 788 ==
LOC: LDRP 09:48 → OBSVTOIN 11:18 → LDRP 11:24
PROVIDERS: ADMIT Obstetrics & Gynecology; ATTEND Obstetrics & Gynecology
PROC: 10907ZC Drainage of Amniotic Fluid, Therapeutic from Products of Conception, Via Natural or Artificial Opening (ICD-10-PCS; 2024-05-08)
PROC: 10D00Z1 Extraction of Products of Conception, Low, Open Approach (ICD-10-PCS; principal; 2024-05-08 17:11)
DX: O14.94 Unspecified pre-eclampsia, complicating childbirth (principal); O76 Abnormality in fetal heart rate and rhythm complicating labor and delivery; O77.0 Labor and delivery complicated by meconium in amniotic fluid; O61.9 Failed induction of labor, unspecified; Z37.0 Single live birth; Z3A.38 38 weeks gestation of pregnancy
CPT/HCPCS: 36415; 59025; 76818; 80053; 80307; 81001; 81002; 82570; 83735; 84156; 84550; 85025; 85610; 85730; 86592; 86780; 86803; 86850; 86900; 86901; 94760; 94762; 96360; 96361; 96365; 96366; G0378; J0171; J1100; J1885; J2003; J2405; J2590